=== PATIENT | female | born 1995 | race Caucasian/White ===

== ENCOUNTER 2022-03-08 15:22 | Emergency (ER) | payer OTHER ==
[~2022-03-08] VITALS: Ht 160 cm; Wt 51.3 kg
[2022-03-08 15:45] VITALS: BP 107/64
[2022-03-08] MEDS ORDERED: LORazepam 1 MG TAB PO ONE (16:50)
[2022-03-08] MEDS ORDERED: NACL 0.9% 1,000 ML IV ONE (17:25)
--- NOTE | 2022-03-08 17:42 | NUR ---
OBTAINED BLOOD WORK, STARTED IV. HANDED TO CPT JASMIN.
[2022-03-08 18:18] LABS: ANION GAP 13.7 (8-16); CREATININE 0.5 mg/dL (0.6-1.3); POTASSIUM 3.7 mmol/L (3.5-5.1)
[2022-03-08] MEDS ORDERED: ONDA-188 PO (18:22)
[2022-03-08 19:11] VITALS: BP 109/64
--- NOTE | 2022-03-08 19:11 | NUR ---
Patient discharged with v/s stable. Written and verbal after care instructions given. Patient alert, oriented and verbalized understanding of instructions. Ambulatory with steady gait. All questions addressed prior to discharge. ID band removed. Patient advised to follow up with PMD. Rx of Zofran given. Opportunity to ask questions provided and answered.
== END 2022-03-08 19:11 | disposition home or self-care (01) ==
LOC: EDSEX 15:22 → MED 15:22
DX: F41.9 Anxiety disorder, unspecified (principal)
CPT/HCPCS: 36415; 80048; 81002; 81025; 93005; 96360; 96361; 99284; J7030

== ENCOUNTER 2022-04-01 00:09 | Inpatient (IN) | payer OTHER ==
[~2022-04-01] VITALS: Ht 160 cm; Wt 49.9 kg
[~2022-04-01 00:09] MED LIST: ONDA-188 PO
[2022-04-01 00:15] VITALS: BP 123/85
--- NOTE | 2022-04-01 00:18 | NUR ---
TO BED AMBULATORY
--- NOTE | 2022-04-01 00:44 | NUR ---
26 Y/O F BIB MOTHER, C/O CRYING, CANT EAT , N/V, REACTION OF HER ANTI DEPRESSANTS MEDICATION FOR A MONTH. NKA MEDS:XANAX 0.25 PRN, CELAXA 20 MG, EFFEXOR XR 37.5 MG
--- NOTE | 2022-04-01 01:38 | NUR ---
Dr. Ramirez examining patient.
[2022-04-01] MEDS ORDERED: DIAZEPAM PFS 10 MG/2 ML SYR IVP ONE ×3 (01:45→05:10)
[2022-04-01 02:06] LABS: BASOPHILS % (AUTO) 0.7 % (0.0-2.0); EOSINOPHILS % (AUTO) 0.3 % (0.0-4.0); HEMOGLOBIN 12.5 g/dL (12.0-16.0); LYMPHOCYTES % (AUTO) 14.9 % (20.5-51.1); MEAN CORPUSCULAR HEMOGLOBIN 29 pg (27-31); MEAN CORPUSCULAR HGB CONC 34 g/dL (33-37); MEAN CORPUSCULAR VOLUME 86.3 fL (80-94); MONOCYTES # (AUTO) 0.5 K/uL (0.8-1.0); MONOCYTES % (AUTO) 7.3 % (1.7-9.3); NEUTROPHILS # (AUTO) 5.3 K/uL (1.8-7.7); NEUTROPHILS % (AUTO) 76.8 % (42.2-75.2); PLATELET COUNT (AUTO) 218 K/uL (140-450); RED BLOOD CELL COUNT(AUTO) 4.29 MIL/uL (4.20-5.40); RED CELL DISTRIBUTION WIDTH 13.9 % (11.6-13.7); WHITE BLOOD COUNT (AUTO) 6.9 K/uL (4.8-10.8)
--- NOTE | 2022-04-01 02:09 | NUR ---
COVID SWAB COLLECTED AND SENT TO LAB
[2022-04-01 02:13] LABS: CARBON DIOXIDE 28.2 mmol/L (21-32); CREATININE 0.6 mg/dL (0.6-1.3); POTASSIUM 4.2 mmol/L (3.5-5.1); TOTAL BILIRUBIN 0.6 mg/dL (0.0-1.0)
--- NOTE | 2022-04-01 02:23 | NUR ---
PATIENT MEDICATED PER ORDERS. TOLERATED WELL.
[2022-04-01 02:24] LABS: MAGNESIUM 1.7 mg/dL (1.8-2.4); PHOSPHORUS 3.2 mg/dL (2.5-4.9)
--- NOTE | 2022-04-01 04:16 | NUR ---
Dr. Ramirez examining patient.
[2022-04-01] MEDS ORDERED: CITA20TA15 PO (04:24)
[2022-04-01] MEDS ORDERED: ALPR0.5T2 PO (04:24)
[2022-04-01] MEDS ORDERED: VENL37.55 PO (04:24)
--- NOTE | 2022-04-01 04:24 | NUR ---
MED RECON COMPLETE.
[2022-04-01] MEDS ORDERED: CYPROHEPTADINE 4 MG TAB PO ONE (05:00)
[2022-04-01] MEDS ORDERED: LORazepam 2 MG/ML VIAL IVP PRN (05:05)
[2022-04-01] MEDS ORDERED: NACL 0.9% 1,000 ML IV ONE (05:10)
--- NOTE | 2022-04-01 05:47 | NUR ---
Patient will be admitted to care of . Admited to TELE. Will go to room 105B. Belongings list completed. Report to LORNA MICHAUD.
--- NOTE | 2022-04-01 05:49 | NUR ---
The patient's care was reviewed and supervised by Rosa Marcus RN, RN.
[2022-04-01 05:50] VITALS: BP 111/73
--- NOTE | 2022-04-01 05:50 | NUR ---
RECEIVED PT FROM ER NURSE BRIANNA. PT WHEELED TO [facility] FROM ER [facility] [place]. PT A/A/O X4, ABLE TO COMMUNICATE NEEDS. RESPIRATIONS EVEN AND UNLABORED ON RA. NO DISTRESS NOTED. NO COMPLAINTS OF PAIN. PT TOO ANXIOUS, SHAKING. PT REQUESTED HER MOM TO COME INSIDE HER ROOM. PT STATED, "I'M TOO SCARED. I WANT MY MOM TO BE HERE". PT'S MOM ALLOWED TO STAY WITH HER IN HER ROOM. SKIN IS INTACT, WARM AND DRY TO TOUCH. IV SITE ON LAC 20G, SL. PT ORIENTED TO ROOM AND ENVIRONMENT. CALL LIGHT WITHIN REACH. SAFETY PRECAUTIONS IN PLACE. WILL CONTINUE TO MONITOR.
--- NOTE | 2022-04-01 06:00 | NUR ---
MRSA SWAB TAKEN AND SENT TO LAB.
--- NOTE | 2022-04-01 06:25 | NUR ---
PT VOMITING. RECEIVED ORDER FROM MD FOR VOMITING, MG 1.7 AND FULL CODE STATUS.
[2022-04-01] MEDS ORDERED: ONDANSETRON 4 MG TAB PO PRN (06:30)
[2022-04-01] MEDS ORDERED: MAGNESIUM OXIDE 400 MG TAB PO SCH (06:30)
[2022-04-01] MEDS ORDERED: ONDANSETRON 4 MG/2 ML VIAL IVP PRN (06:40)
--- NOTE | 2022-04-01 06:57 | NUR ---
PRN IV MEDS ADMINISTERED BY LORNA CONTRERAS. PT CONTINUOUSLY MONITORED.
--- NOTE | 2022-04-01 07:15 | NUR ---
ENDORSED PT TO DAY SHIFT NURSE FOR CONTINUITY OF CARE. ALL NEEDS MET THROUGHOUT SHIFT. PT IS STABLE.
[2022-04-01] MEDS ORDERED: MORPHINE SULFATE 2 MG/ML SYR IVP PRN (07:40)
[2022-04-01] MEDS ORDERED: ACETAMINOPHEN 325 MG TAB PO PRN (07:40)
[2022-04-01] MEDS ORDERED: ZOLPIDEM 10 MG TAB PO PRN (07:40)
[2022-04-01] MEDS ORDERED: POTASSIUM CHLORIDE 10 MEQ TABER PO PRN (07:40)
[2022-04-01] MEDS ORDERED: DOCUSATE SODIUM 100 MG GELCAP PO PRN (07:40)
[2022-04-01] MEDS: NACL 0.9% 1,000 ML IV SCH ×2 (07:45→22:00)
[2022-04-01 08:00] VITALS: BP 137/68
[2022-04-01 09:01] LABS: BASOPHILS % (AUTO) 0.5 % (0.0-2.0); EOSINOPHILS % (AUTO) 0.3 % (0.0-4.0); HEMATOCRIT 34.2 % (36-48); HEMOGLOBIN 11.8 g/dL (12.0-16.0); LYMPHOCYTES # (AUTO) 1.1 K/uL (2.5-16.5); LYMPHOCYTES % (AUTO) 19.1 % (20.5-51.1); MEAN CORPUSCULAR HEMOGLOBIN 30 pg (27-31); MEAN CORPUSCULAR HGB CONC 34 g/dL (33-37); MEAN CORPUSCULAR VOLUME 85.6 fL (80-94); MONOCYTES # (AUTO) 0.4 K/uL (0.8-1.0); MONOCYTES % (AUTO) 7.7 % (1.7-9.3); NEUTROPHILS # (AUTO) 4.2 K/uL (1.8-7.7); NEUTROPHILS % (AUTO) 72.4 % (42.2-75.2); PLATELET COUNT (AUTO) 217 K/uL (140-450); RED CELL DISTRIBUTION WIDTH 13.5 % (11.6-13.7); WHITE BLOOD COUNT (AUTO) 5.8 K/uL (4.8-10.8)
[2022-04-01 09:09] LABS: ANION GAP 12.7 (8-16); CREATININE 0.5 mg/dL (0.6-1.3); POTASSIUM 3.7 mmol/L (3.5-5.1)
--- NOTE | 2022-04-01 11:30 | NUR ---
DC PLANNING SW MET WITH PT AT BEDSIDE TO COMPLETE ASSESSMENT. PATIENT REPORTS CURRENTLY RESIDING WITH HER PARTNER AT [address], [facility]. PATIENT REQUESTING TO KEEP ADDRESS LISTED IS, ADDRESS ON FILE IS PATIENT PERMANENT ADDRESS. PATIENT IDENTIFIED ISELA ROWELL, MOTHER, AND MELISSA ABAD, DAD, EMERGENCY CONTACT AND MDM. PATIENT DENIED HAVING AD IN PLACE AND DECLINED AD OFFERED BY JAMIA. PATIENT REPORTS MEETING WITH PCP NEEDED, LAST VISIT; 6 MONTHS AGO. PATIENT REPORTS SHE IS LOOKING FOR A NEW PCP AND REQUESTED INSURANCE PHONE NUMBER SO THAT SHE CAN CALL AND FIND IN NETWORKS PROVIDERS. PATIENT REPORTS MEDICATION COMPLIANCE AND DENIES BARRIERS IN ACCESS TO NEEDED MEDICATIONS. PATIENT REPORTS RECEIVING MEDICATIONS FROM [facility] IN [employer] [address] IN [place], WHEN NEEDED. PATIENT REPORTS BEING INDEPENDENT IN ALL ACTIVITIES AND DENIES USE OF DME. PATIENT COMPLETES ALL ADL'S INDEPENDENTLY. PATIENT REPORTS MENTAL HEALTH HX OF ANXIETY. PATIENT REPORTS MEETING WITH A THERAPIST 1X WEEKLY WHICH SHE FIND HELPFUL. PATIENT REPORTS ALSO MEETING WITH PSYCHIATRIST 1X WEEKLY HOWEVER, REPORTS SHE WILL BE LOOKING FOR NEW PSYCHIATRIST. PATIENT REPORTS MARIJUANA USE. PATIENT BELIEVES THAT MARIJUANA USE AIDS IN ALLEVIATING ANXIETY HOWEVER, PATIENT DID REPORT SHED LIKE SUBSTANCE USE RESOURCES. PATIENT REPORTS DC PLAN IS TO RETURN HOME WITH MOM PROVIDING TRANSPORTATION ONCE STABLE FOR DC. SW INQUIRED ON ADDITIONAL RESOURCES NEEDED, PATIENT DECLINED.
[2022-04-01 12:00] VITALS: BP 141/78
--- NOTE | 2022-04-01 14:57 | NUR ---
PATIENT HAS BEEN SCREENED AND CATEGORIZED LOW NUTRITION RISK. PATIENT WILL BE SEEN WITHIN 7 DAYS OF ADMISSION. 04/08/[address]
[2022-04-01 16:00] VITALS: BP 141/78
--- NOTE | 2022-04-01 19:30 | NUR ---
RECEIVED REPORT FROM AM NURSE CARTER RN FOR CONTINUITY OF CARE. PT IS A&OX4. AWAKE MOTHER AT BEDSIDE. PT ONLY TOOK BITES OF DINNER REGULAR DIET. DRANK 400CC OF "JAMBA JUICE". DENIES PAIN. ON RM AIR/O2 WITH NO ACUTE DISTRESS. RR EVEN AND UNLABORED WITH EQUAL CHEST RISE. GI INTACT.PT'S SKIN IS INTACT. PT IS AMBULATORY AND CONTINENT . IV LAC 20G INFUSING NS @75CC/HR. ALL SAFETY MEASURES IN PLACE CALL LIGHT WITHIN REACH. BED IN LOW AND LOCKED POSITION. WILL CONTINUE TO MONITOR.
[2022-04-01 20:00] VITALS: BP 137/68
[2022-04-02] VITALS: BP_SYST 103; BP_SYST 104; BP_DIAS 62; BP_DIAS 67
[2022-04-02 04:00] VITALS: BP 98/60
[2022-04-02 07:32] LABS: ANION GAP 10.3 (8-16); BASOPHILS # (AUTO) 0.1 K/uL (0.00-0.22); BASOPHILS % (AUTO) 1.1 % (0.0-2.0); CARBON DIOXIDE 25.2 mmol/L (21-32); CREATININE 0.6 mg/dL (0.6-1.3); EOSINOPHILS # (AUTO) 0.1 K/uL (0-0.4); EOSINOPHILS % (AUTO) 1.7 % (0.0-4.0); HEMATOCRIT 33.4 % (36-48); HEMOGLOBIN 11.3 g/dL (12.0-16.0); LYMPHOCYTES # (AUTO) 1.7 K/uL (2.5-16.5); LYMPHOCYTES % (AUTO) 31.7 % (20.5-51.1); MEAN CORPUSCULAR HEMOGLOBIN 30 pg (27-31); MEAN CORPUSCULAR HGB CONC 34 g/dL (33-37); MEAN CORPUSCULAR VOLUME 87.3 fL (80-94); MONOCYTES # (AUTO) 0.5 K/uL (0.8-1.0); MONOCYTES % (AUTO) 9.4 % (1.7-9.3); NEUTROPHILS % (AUTO) 56.1 % (42.2-75.2); PLATELET COUNT (AUTO) 197 K/uL (140-450); POTASSIUM 3.5 mmol/L (3.5-5.1); RED BLOOD CELL COUNT(AUTO) 3.83 MIL/uL (4.20-5.40); RED CELL DISTRIBUTION WIDTH 13.3 % (11.6-13.7); WHITE BLOOD COUNT (AUTO) 5.4 K/uL (4.8-10.8)
[2022-04-02] MEDS: LORazepam 2 MG/ML VIAL IVP PRN (07:40)
[2022-04-02 08:00] VITALS: BP 118/72
[2022-04-02] MEDS: MAG SULF 2000 MG/WATER PREMIX 50 ML IV PRN (08:18)
[2022-04-02] MEDS: ONDANSETRON 4 MG/2 ML VIAL IVP PRN (08:20)
[2022-04-02] MEDS: NACL 0.9% 1,000 ML IV SCH (11:00)
[2022-04-02 12:00] VITALS: BP 129/71
[2022-04-02 16:00] VITALS: BP 106/61
--- NOTE | 2022-04-02 19:50 | NUR ---
RECEIVED REPORT FROM AM NURSE OLGA RN FOR CONTINUITY OF CARE. A&OX4 RR EVEN AND UNLABORED WITH EQUAL CHEST RISE . ON RM AIR O2 SAT= 98%. GI INTACT. POOR APPETITE. EDUCATED ON IMPORTANCE OF EATING ENOUGH NUTRIENTS TO GET STRONGER. DID NOT CARE FOR DINNER ONLY ATE 15%. REQUESTED A PB&J SANDWICH 2 JELLOS AND ORANGE JUICE. CONSUMED 100%. C/O NIÑO RECEIVED TYLENOL 650MG PO. RELIEF AFTER 20 MINUTES ENCOURAGED TO DRINK FLUIDS. PT'S SKIN INTACT. ALL SAFETY MEASURES IN PLACE.CALL LIGHT WITHIN REACH. WILL CONTINUE TO MONITOR.
[2022-04-02 20:00] VITALS: BP 106/66
[2022-04-03] VITALS: BP 104/62
[2022-04-03] MEDS: NACL 0.9% 1,000 ML IV SCH ×2 (00:20→13:30)
[2022-04-03 04:00] VITALS: BP 111/72
--- NOTE | 2022-04-03 06:00 | NUR ---
PT SLEEPING SOUNDLY. RR EVEN AND UNLABORED WITH EQUAL CHEST RISE. VSS AFEBRILE. NAD. CALL LIGHT WITHIN REACH. CONTINUE TO MONITOR MOOD.
[2022-04-03 07:10] LABS: BASOPHILS # (AUTO) 0.1 K/uL (0.00-0.22); BASOPHILS % (AUTO) 1.8 % (0.0-2.0); EOSINOPHILS # (AUTO) 0.1 K/uL (0-0.4); EOSINOPHILS % (AUTO) 2.4 % (0.0-4.0); HEMATOCRIT 34.7 % (36-48); HEMOGLOBIN 11.6 g/dL (12.0-16.0); LYMPHOCYTES # (AUTO) 1.6 K/uL (2.5-16.5); LYMPHOCYTES % (AUTO) 34.9 % (20.5-51.1); MEAN CORPUSCULAR HEMOGLOBIN 29 pg (27-31); MEAN CORPUSCULAR HGB CONC 34 g/dL (33-37); MEAN CORPUSCULAR VOLUME 87.1 fL (80-94); MONOCYTES # (AUTO) 0.5 K/uL (0.8-1.0); MONOCYTES % (AUTO) 10.2 % (1.7-9.3); NEUTROPHILS # (AUTO) 2.3 K/uL (1.8-7.7); NEUTROPHILS % (AUTO) 50.7 % (42.2-75.2); PLATELET COUNT (AUTO) 210 K/uL (140-450); RED BLOOD CELL COUNT(AUTO) 3.98 MIL/uL (4.20-5.40); RED CELL DISTRIBUTION WIDTH 13.5 % (11.6-13.7); WHITE BLOOD COUNT (AUTO) 4.6 K/uL (4.8-10.8)
[2022-04-03 07:12] LABS: ANION GAP 10.8 (8-16); CREATININE 0.6 mg/dL (0.6-1.3); POTASSIUM 3.8 mmol/L (3.5-5.1)
--- NOTE | 2022-04-03 07:20 | NUR ---
ENDORSED REPORT TO AM NURSE ADZ RN FOR CONTINUITY OF CARE. PT IS STABLE. ALL NEEDS MET THROUGHOUT THE SHIFT.
[2022-04-03 08:00] VITALS: BP 106/59
[2022-04-03] MEDS: ONDANSETRON 4 MG/2 ML VIAL IVP PRN ×2 (08:04→19:58)
[2022-04-03] MEDS: LORazepam 2 MG/ML VIAL IVP PRN (08:04)
--- NOTE | 2022-04-03 08:10 | NUR ---
PATIENT IS CRYING, VERBALIZED FEELING OF ANXIOUSNESS, STATES " I JUST WANT TO GO BACK TO SLEEP AND NOT BEING AWAKE AND FEELING LIKE THIS", PT. DENIES SUICIDAL IDEATION OR PLAN. ATIVAN GIVEN ORDERED. MOTHER AT BEDSIDE. WILL CONTINUE TO MONITOR.
[2022-04-03] MEDS ORDERED: VENLAFAXINE 37.5 MG TAB PO SCH (09:00)
[2022-04-03] MEDS ORDERED: buPROPion 100 MG TAB PO SCH (09:00)
--- NOTE | 2022-04-03 10:50 | NUR ---
Spoke with Dr. Cabrera and updated regarding patent status.per Dr. Cabrera he will call back via zoom and will talk to the patient.
[2022-04-03 12:00] VITALS: BP 106/59
[2022-04-03] MEDS ORDERED: hydrOXYzine PAMOATE 25 MG CAP PO PRN (13:05)
[2022-04-03 16:00] VITALS: BP 108/61
--- NOTE | 2022-04-03 19:10 | NUR ---
RECEIVED REPORT FROM MORNING SHIFT NURSE. PATIENT IS AWAKE ALERT WELL RESTED ON ROOM AIR. NO DISTRESS. NO COMPLAINTS OF PAIN PAIN THIS TIME. AMBULATORY. IVF NS INFUSING AT 75 MLS ON THE LEFT FOREARM. MOTHER AT BEDSIDE. CALL LIGHT WITHIN REACH. ALL SAFETY PRECAUTIONS IN PLACE.
--- NOTE | 2022-04-03 19:59 | NUR ---
PATIENT COMPLAINED OF NAUSEATED, MEDICATED WITH ZOFRAN ORDERED.
--- NOTE | 2022-04-03 21:30 | NUR ---
PATIENT CALLED AND STATED THAT HER IV PUMP IS ALARMING. WENT TO THE PATIENT ROOM AND TOOK CARE OF THE IV PUMP THAT'S BEEPING. WHEN I WALKED IN I SAW ANOTHER PERSON LAYING IN [address]A AND I THOUGHT THERE'S ANOTHER PATIENT IN THAT ROOM. WALKED OUT AND REALIZED THAT I ONLY HAVE ONE PATIENT ASSIGNED IN THE ROOM WHICH IS 105B. FOUND OUT FROM THE PRIMARY RN OF THE PATIENT SERGEI THAT ITS THE PATIENT MOTHER. SO I ASKED LORNA MAI WHY IS THE PATIENT MOTHER STILL IN THE ROOM AND LAYING IN THE OTHER BED. NO ONE NOTIFIED ME OR THE MOLD POLISHER THAT THE PATIENT MOTHER IS SUPPOSED TO BE STAYING 24/7 IN THE PT ROOM. DAY REWRITE EDITOR JOWIE ALSO DIDN'T MENTION IT TO ME. MESSAGED LORNA ARMENDARIZ AND ASKED HER IF SHE IS AWARE THAT THE PATIENT MOTHER HAS PERMISSION TO STAY WITH THE PT . PER LORNA ARMENDARIZ "ONLY THE MOTHER BECAUSE PT HAS ANXIETY". I ALSO ASKED LORNA ARMENDARIZ IF SHE ALLOWS THE PT MOTHER TO LAY ON THE OTHER BED. PER LORNA ARMENDARIZ " NO AND MARCELLO STATED THAT SHE IS NOT SUPPOSED TO BE LAYING ON THE OTHER BED ". I INFORMED THE PRIMARY RN SERGEI ABOUT THE SITUATION AND ALSO ASKED HER TO KINDLY TELL THE PT MOTHER THAT SHE CANNOT LAY ON THE OTHER BED. WE ALSO ASKED THE MOLD POLISHER TAD IF IT WAS ENDORSE TO HER IF THE PT MOTHER IS ALLOWED TO STAY 24/7 WITH THE PT. PER TAD SHE IS NOT AWARE.SO I MADE THE CYNTHIA MISHRA AWARE THAT THE PATIENT MOTHER IS STAYING WITH THE PT ALL THE TIME. PT MOTHER WANTED TO SPEAK TO ME PER LORNA MAI . I WENT TO THE PT ROOM AND THE PT MOTHER WAS MAD AND STARTED SCREAMING AT ME AND STATED THAT SHE'S BEEN STAYING WITH THE PATIENT SINCE ADMISSION WITH THE PERMISSION OF THE CHARGE NURSE LAST Thursday WHO SHE CLAIMED " A FEMALE CHARGE NURSE" . I TOLD THE PATIENT MOTHER THAT THE REWRITE EDITOR LAST THURSDAY NIGHT WAS A MALE AND ITS RN DIANE. THEN I INFORMED AND APOLOGIZED TO THE MOTHER ABOUT ALL THE CONFUSION AND MADE HER AWARE THAT I WAS JUST FOLLOWING THE HOSPITAL POLICY OF NOT HAVING A VISITOR STAYING AT THE BEDSIDE 24/7 UNLESS ITS A END OF LIFE SITUATION OR PT IS A MINOR. I ALSO MADE HER AWARE THAT I WASN'T INFORM THE SHE WILL BE STAYING WITH THE PATIENT AND SO IS OUR MOLD POLISHER NOLBERTO MISHRA IS ALSO NOT AWARE. I TOLD THE PT MOTHER THAT SHE CAN STAY BUT WE CANNOT ALLOW HER TO LAY ON THE OTHER BED. PT MOTHER WAS MAD AND TOLD ME "THERE YOU CAN HAVE YOUR BED , ARE YOU HAPPY NOW". THE PT FATHER ALSO CALLED AND SPOKE WITH ME. THE PT FATHER WAS ALSO MAD THAT WE DON'T ALLOW THE PT MOTHER TO LAY OR SLEEP ON THE OTHER BED. I ALSO EXPLAINED TO THE PT FATHER ABOUT OUR POLICY AND THAT WE DON'T ALLOW ANYBODY TO LAY ON THE OTHER BED. I INFORMED THE PATIENT FATHER THAT WE WILL TRY TO PROVIDE HIS A RECLINER IF WE CAN FIND ONE.
--- NOTE | 2022-04-03 23:20 | NUR ---
PROVIDED THE PATIENT MOTHER A RECLINER IN THE ROOM. NOTICED THAT THE PT MOTHER IS NOW LAYING AND SLEEPING NEXT TO THE PT IN THE SAME BED.
[2022-04-04] VITALS: BP 106/64
--- NOTE | 2022-04-04 02:00 | NUR ---
CHECK ON PATIENT, PT SLEEPING BREATHING NORMAL WITH SYMMETRICAL RISE AND FALL OF THE CHEST. CALL LIGHT WITHIN REACH. MOTHER IS SLEEPING TOGETHER WITH THE PATIENT BED.
[2022-04-04] MEDS: NACL 0.9% 1,000 ML IV SCH (02:21)
--- NOTE | 2022-04-04 07:29 | NUR ---
GAVE REPORT TO DAY SHIFT NURSE ADZE FOR CONTINUITY OF CARE. PATIENT STABLE.
[2022-04-04 07:46] LABS: BASOPHILS # (AUTO) 0.1 K/uL (0.00-0.22); BASOPHILS % (AUTO) 1.2 % (0.0-2.0); EOSINOPHILS # (AUTO) 0.1 K/uL (0-0.4); HEMATOCRIT 34.2 % (36-48); HEMOGLOBIN 11.7 g/dL (12.0-16.0); LYMPHOCYTES # (AUTO) 1.6 K/uL (2.5-16.5); LYMPHOCYTES % (AUTO) 32.6 % (20.5-51.1); MEAN CORPUSCULAR HEMOGLOBIN 29 pg (27-31); MEAN CORPUSCULAR HGB CONC 34 g/dL (33-37); MEAN CORPUSCULAR VOLUME 85.6 fL (80-94); MONOCYTES # (AUTO) 0.5 K/uL (0.8-1.0); MONOCYTES % (AUTO) 10.1 % (1.7-9.3); NEUTROPHILS # (AUTO) 2.6 K/uL (1.8-7.7); NEUTROPHILS % (AUTO) 54.1 % (42.2-75.2); PLATELET COUNT (AUTO) 209 K/uL (140-450); RED CELL DISTRIBUTION WIDTH 13.5 % (11.6-13.7); WHITE BLOOD COUNT (AUTO) 4.9 K/uL (4.8-10.8)
[2022-04-04 07:52] LABS: ANION GAP 12.2 (8-16); CARBON DIOXIDE 27.9 mmol/L (21-32); CREATININE 0.5 mg/dL (0.6-1.3); POTASSIUM 4.1 mmol/L (3.5-5.1)
[2022-04-04] MEDS: ONDANSETRON 4 MG/2 ML VIAL IVP PRN (08:15)
[2022-04-04] MEDS ORDERED: buPROPion 100 MG TAB PO SCH (09:00)
[2022-04-04] MEDS ORDERED: VENL37.55 PO (09:21)
[2022-04-04] MEDS ORDERED: ONDA-188 PO (09:21)
[2022-04-04] MEDS ORDERED: BUPR-10 PO (09:21)
[2022-04-04] MEDS ORDERED: HYDR25CA1 PO (11:02)
[2022-04-04 11:03] VITALS: BP 102/60
[2022-04-04] MEDS: MAG SULF 2000 MG/WATER PREMIX 50 ML IV PRN (11:30)
--- NOTE | 2022-04-04 12:00 | NUR ---
DISCHARGE PLANNING SW MEET WITH PATIENT AT BEDSIDE TO DISCUSS DISCHARGE AND PROVIDED PATIENT WITH RESOURCES TO MENTAL HEALTH SERVICES IN HER AREA. DISCUSSED PATIENT'S RECOMMENDATIONS TO CONTACT A PROVIDER IN THE LIST OF SERVICES OF HER CHOOSING AND MAKE AN APPOINTMENT WITH PSYCHIATRIST AND THERAPIST FOR SERVICES. PATIENT AGREED AND THANKED JAMIA FOR THE INFORMATION AND RESOURCES PROVIDED. JAMIA ENDED MEETING.
--- NOTE | 2022-04-04 12:15 | NUR ---
PATIENT DISCHARGED HOME ACCOMPANIED BY HER FATHER. DISCHARGE INSTRUCTIONS GIVEN. STABLE UPON DISCHARGE
== END 2022-04-04 12:56 | disposition home or self-care (01) | DRG 641 ==
LOC: MED 00:09 → MTU 05:08
PROVIDERS: ADMIT Family Medicine; ATTEND Family Medicine
DX: E83.51 Hypocalcemia (principal); F41.9 Anxiety disorder, unspecified; Z20.822 Contact with and (suspected) exposure to COVID-19; F32.A Depression, unspecified; E83.42 Hypomagnesemia; T50.995A Adverse effect of other drugs, medicaments and biological substances, initial encounter; Y92.89 Other specified places as the place of occurrence of the external cause
CPT/HCPCS: 36415; 80048; 80053; 81025; 83735; 84100; 85025; 87081; 93005; 96361; 96374; 96376; 99285; J2060; J2405; J3360; J3475